=== PATIENT | female | born 1940 | race African-American/Black ===

== ENCOUNTER 2018-03-26 07:36 | Inpatient (IN) | END 2018-03-31 13:16 | disposition home or self-care (01) | DRG 557 | DX: M65.9 Synovitis and tenosynovitis, unspecified (principal); E43 Unspecified severe protein-calorie malnutrition; L03.115 Cellulitis of right lower limb; E87.6 Hypokalemia; K21.9 Gastro-esophageal reflux disease without esophagitis; E83.42 Hypomagnesemia; E78.5 Hyperlipidemia, unspecified; I10 Essential (primary) hypertension; E66.01 Morbid (severe) obesity due to excess calories; Z68.25 Body mass index [BMI] 25.0-25.9, adult; K27.9 Peptic ulcer, site unspecified, unspecified as acute or chronic, without hemorrhage or perforation; D63.8 Anemia in other chronic diseases classified elsewhere; G89.29 Other chronic pain ==

== ENCOUNTER 2018-10-15 13:56 | Emergency (ER) | payer MEDICARE, MEDICAID ==
[~2018-10-15] VITALS: Ht 152.4 cm; Wt 59.9 kg
[~2018-10-15 13:56] MED LIST: CYCL10TA9 PO; ERGO500040 PO; FAMO-131 PO; VALS80TA2 PO
[2018-10-15] MEDS ORDERED: TRAMADOL HCL 50 MG TABLET ONE (14:35)
[2018-10-15] MEDS: TRAMADOL HCL 50 MG TABLET PO ONE (14:40)
--- NOTE | 2018-10-15 14:41 | NUR ---
JASWANT RA 89 Trip/Fall "was crossing the street to take bus. I stumbled Pain left arm". PT AAOX4, VSS. RR EVEN & UNLABORED. DENIES CP, SOB, DIZZINESS, N/V AT THIS TIME. PT SEEN & EVAL DR. ROBB, MEDICATED ORDERED & WILL CONT TO MONITOR.
[2018-10-15 16:42] VITALS: BP 132/64
--- NOTE | 2018-10-15 16:42 | NUR ---
Patient discharged to home in stable condition. Written and verbal after care instructions given. Patient verbalizes understanding of instruction.
== END 2018-10-15 16:43 | disposition home or self-care (01) ==
LOC: ER 14:00
DX: S42.255A Nondisplaced fracture of greater tuberosity of left humerus, initial encounter for closed fracture (principal); K21.9 Gastro-esophageal reflux disease without esophagitis; Z88.1 Allergy status to other antibiotic agents; Z88.5 Allergy status to narcotic agent; Z91.018 Allergy to other foods; Z91.09 Other allergy status, other than to drugs and biological substances; Z79.899 Other long term (current) drug therapy; W01.0XXA Fall on same level from slipping, tripping and stumbling without subsequent striking against object, initial encounter; Y93.89 Activity, other specified; Y92.488 Other paved roadways as the place of occurrence of the external cause; Y99.8 Other external cause status
CPT/HCPCS: 73030-TC; 73060-TC